=== PATIENT | female | born 1950 | race Caucasian/White ===

== ENCOUNTER → 2020-01-15 14:53 | Outpatient (BNVA) | payer MEDICARE, OTHER, SELFPAY | PROVIDERS: PCP Internal Medicine; Visit Provider Surgery | DX: D24.1 Benign neoplasm of right breast (principal); Z80.3 Family history of malignant neoplasm of breast | CPT/HCPCS: 99213 ==

== ENCOUNTER 2020-01-31 12:34 | Outpatient (REF) | payer MEDICARE, OTHER, SELFPAY ==
[2020-01-28 13:29] LABS: Blood Urea Nitrogen 16 mg/dL (9-16); Estimated Glomerular Filt Rate > 60
--- NOTE | 2020-01-31 12:33 | MR_ITS ---
EXAMINATION: MR BREAST WITHOUT AND WITH CONTRAST, BILATERAL CLINICAL INFORMATION: High-risk screening. Prior right breast MRI biopsy revealing papilloma. COMPARISON: MRI 06/22/2018. TECHNIQUE: Imaging was performed with a dedicated breast coil. Prior to the administration of contrast, bilateral axial T1 and bilateral axial T2-weighted sequences were obtained. After the uneventful administration of?7.5 mL of Gadavist, dynamic contrast-enhanced VIBRANT series through the breasts in the axial plane were performed. Subtracted images were performed and reviewed. A delayed sagittal sequence through both breasts was acquired. Additionally, CAD post-processing, including maximum intensity projections, 3-D reconstructions and kinetic analysis, were performed an independent workstation and reviewed by the interpreting radiologist is a portion of this exam. FINDINGS: The patient's fibroglandular tissue demonstrates moderate background enhancement. LEFT BREAST: There are scattered foci of enhancement mostly localized to the anterior left breast which appear little changed compared to the 2019 examination. No clear-cut suspicious nonmasslike or masslike enhancement. No abnormal skin thickening or nipple retraction. No abnormal architectural distortion. Review of the T2-weighted images demonstrates no fibrocystic changes or dilated ducts. Review of kinetic images reveals no additional findings. RIGHT BREAST: Biopsy clip present at 11 o'clock, anterior. No residual enhancing lesion. Similar to the contralateral side, there are numerous scattered foci of enhancement. With the exception of the biopsied lesion, these appear little changed compared to 2019. A dominant enhancing mass, oval in shape, located 11 o'clock, 2.8 cm from the nipple measures 0.6 cm in size and appears stable compared to previous examination. Findings images plateau or type II enhancement. Recommend close attention on follow up to ensure continued stability (image 76, series 100). No abnormal skin thickening or nipple retraction. No abnormal architectural distortion. Review of the T2-weighted images demonstrates no fibrocystic changes or dilated ducts. Review of kinetic images reveals no additional findings. There is no suspicious internal mammary chain or axillary adenopathy. A few partially imaged T2 hyperintense foci within the anterior aspect of the liver stable compared to the 2019 examination and most likely represent cysts. MR/MR breast BI wo/w con IMPRESSION: 1. No convincing MR specific evidence of malignancy. 2. Unremarkable benign right breast MRI-guided biopsy site. No residual lesion. 3. Probably benign 6 mm enhancing mass, right breast, 11 o'clock. Finding is stable compared to 2019. Recommended continued attention on follow up. ASSESSMENT: LEFT BREAST: BI-RADS 2 - Benign Findings. RIGHT BREAST: BI-RADS 3 - Probably benign finding (s). Short interval follow up suggested. RECOMMENDATIONS: Six-month follow up right breast MRI.
== END 2020-01-31 12:35 | disposition home or self-care (01) ==
LOC: HO.MRI 12:34
PROVIDERS: Surgery; PCP Internal Medicine; Visit Provider Orthopaedic Surgery
DX: D24.1 Benign neoplasm of right breast (principal); Z91.89 Other specified personal risk factors, not elsewhere classified
CPT/HCPCS: 77049; 82565; 84520; A9585

== ENCOUNTER 2020-06-20 10:03 | Outpatient (REF) | payer MEDICARE, OTHER, SELFPAY ==
--- NOTE | ~2020-06-20 | MM_ITS ---
EXAMINATION: MM SCREENING DIGITAL BREAST TOMOSYNTHESIS, BILATERAL CLINICAL INFORMATION: Screening. Asymptomatic. The lifetime risk of breast cancer based on the Tyrer-Cuzick Model is 17.5%. COMPARISON: Mammography: August 15, 2019 and studies dating back to September 06, 2012 TECHNIQUE: Digital breast tomosynthesis is performed in both the craniocaudal and mediolateral oblique views along with computer-aided detection (CAD). Synthesized 2D images are generated from the tomosynthesis. FINDINGS: There are scattered areas of fibroglandular density (ACR BI-RADS breast composition Category b). There are no significant masses, abnormal calcifications, or other abnormalities. MM/MM tomosynthesis screening BI IMPRESSION: There are no significant changes from prior study. ASSESSMENT: BI-RADS 1: Negative RECOMMENDATION: Routine annual mammography screening. This patient's information was entered into a reminder system with a target due date for their next mammogram.
== END 2020-06-20 10:04 | disposition home or self-care (01) ==
LOC: HO.MAMMO 10:03
PROVIDERS: Visit Provider Surgery
DX: Z12.31 Encounter for screening mammogram for malignant neoplasm of breast (principal)
CPT/HCPCS: 77063; 77067

== ENCOUNTER 2020-07-02 09:00 | Outpatient (RCR) | payer MEDICARE, OTHER, SELFPAY | END 2020-08-01 10:25 | disposition home or self-care (01) | LOC: HO.PTCHIC 09:00 | PROVIDERS: PCP Internal Medicine; Visit Provider Nurse Practitioner Women's Health | DX: M48.061 Spinal stenosis, lumbar region without neurogenic claudication (principal); Z98.890 Other specified postprocedural states | CPT/HCPCS: 97012; 97110; 97112; 97140; 97162; 97530 ==

== ENCOUNTER 2020-08-07 09:33 | Outpatient (REF) | payer MEDICARE, OTHER, SELFPAY ==
[2020-08-07 11:15] LABS: Blood Urea Nitrogen 17 mg/dL (9-16); Estimated Glomerular Filt Rate > 60
== END 2020-08-07 09:34 | disposition home or self-care (01) ==
LOC: HO.LAB 09:33
PROVIDERS: PCP Internal Medicine; Visit Provider Surgery
DX: R92.8 Other abnormal and inconclusive findings on diagnostic imaging of breast (principal); D24.1 Benign neoplasm of right breast; Z91.89 Other specified personal risk factors, not elsewhere classified
CPT/HCPCS: 36415; 82565; 84520; 99212

== ENCOUNTER 2020-08-11 07:54 | Outpatient (REF) | payer MEDICARE, OTHER, SELFPAY ==
--- NOTE | ~2020-08-11 | MR_ITS ---
EXAMINATION: MR BREAST WITHOUT AND WITH CONTRAST, BILATERAL CLINICAL INFORMATION: Short interval follow-up for right breast enhancing mass, 11:00 position. COMPARISON: Bilateral breast MRI 01/31/2020, 06/22/2018, bilateral mammogram 06/23/2020 TECHNIQUE: Imaging was performed with a dedicated breast coil. Prior to the administration of contrast, bilateral axial T1 and bilateral axial T2 weighted sequences were obtained. After the uneventful administration of?7.5 mL of Gadavist, dynamic contrast-enhanced VIBRANT series through the breasts in the axial plane were performed. Subtracted images were performed and reviewed. A delayed sagittal sequence through both breasts was acquired. Additionally, CAD post-processing, including maximum intensity projections, 3-D reconstructions and kinetic analysis, were performed an independent workstation and reviewed by the interpreting radiologist is a portion of this exam. FINDINGS: The patient's fibroglandular tissue demonstrates minimal background enhancement. LEFT BREAST: There are scattered enhancing foci which are slightly less pronounced and less numerous than on most recent prior MRI. There is no suspicious mass, duct dilatation or ductal type enhancement. No skin thickening or nipple retraction is seen. RIGHT BREAST: Oval enhancing nodule in the 11:00 position, anterior depth is unchanged in appearance, consistent with a benign etiology. There are multiple scattered enhancing foci which are also stable. There is no new suspicious or dominant enhancing mass. No duct dilatation or ductal type enhancement is seen. There is no skin thickening or nipple retraction. Susceptibility artifact at the site of biopsy marker clip is seen in the 11:00 position, anterior depth. There is no suspicious internal mammary chain or axillary adenopathy. Limited views of the chest and abdomen are unremarkable. MR/MR breast BI wo/w con IMPRESSION: No MR specific evidence of malignancy. ASSESSMENT: LEFT BREAST: BI-RADS 1-Negative RIGHT BREAST: BI-RADS 1-Negative RECOMMENDATIONS: Bilateral mammogram in May 2021 and repeat MRI as clinically indicated.
== END 2020-08-11 07:55 | disposition home or self-care (01) ==
LOC: HO.MRI 07:54
PROVIDERS: Visit Provider Surgery
DX: R92.8 Other abnormal and inconclusive findings on diagnostic imaging of breast (principal); D24.1 Benign neoplasm of right breast; Z91.89 Other specified personal risk factors, not elsewhere classified
CPT/HCPCS: 77049; A9585

== ENCOUNTER → 2021-04-21 13:11 | Outpatient (BNVA) | payer MEDICARE, OTHER, SELFPAY | PROVIDERS: PCP Internal Medicine; Visit Provider Surgery | DX: D24.1 Benign neoplasm of right breast (principal); R92.8 Other abnormal and inconclusive findings on diagnostic imaging of breast; Z91.89 Other specified personal risk factors, not elsewhere classified; Z80.3 Family history of malignant neoplasm of breast | CPT/HCPCS: 99212 ==

== ENCOUNTER 2021-06-22 12:17 | Outpatient (REF) | payer MEDICARE, OTHER, SELFPAY ==
--- NOTE | ~2021-06-22 | MM_ITS ---
EXAMINATION: MM SCREENING DIGITAL BREAST TOMOSYNTHESIS, BILATERAL CLINICAL INFORMATION: Screening. Asymptomatic. History right MR guided biopsy 07/27/2018 (sclerotic intraductal papilloma and adenosis. No atypia). The lifetime risk of breast cancer based on the Tyrer-Cuzick Model is 15%. COMPARISON: Mammography: 06/20/2020, 06/15/2019, 12/19/2017; MRI breasts 08/11/2020, 07/27/2018, 06/22/2018. TECHNIQUE: Digital breast tomosynthesis is performed in both the craniocaudal and mediolateral oblique views along with computer-aided detection (CAD). Synthesized 2D images are generated from the tomosynthesis. FINDINGS: There are scattered areas of fibroglandular density (ACR BI-RADS breast composition Category b). There are no significant masses, abnormal calcifications, or other abnormalities. Parenchymal pattern is similar to prior studies. There is a biopsy clip marker again noted anterior 11:00 right breast. The axilla and skin contours are unremarkable. No significant changes. MM/MM tomosynthesis screening BI IMPRESSION: No mammographic evidence of malignancy. ASSESSMENT: BI-RADS 1: Negative RECOMMENDATION: Routine annual mammography screening. This patient's information was entered into a reminder system with a target due date for their next mammogram.
== END 2021-06-22 12:18 | disposition home or self-care (01) ==
LOC: HO.MAMMO 12:17
PROVIDERS: PCP Internal Medicine; Visit Provider Surgery
DX: Z12.31 Encounter for screening mammogram for malignant neoplasm of breast (principal)
CPT/HCPCS: 77063; 77067

== ENCOUNTER 2021-08-13 14:43 | Outpatient (REF) | payer MEDICARE, OTHER, SELFPAY ==
--- NOTE | ~2021-08-13 | MR_ITS ---
EXAMINATION: MR BREAST WITHOUT AND WITH CONTRAST, BILATERAL CLINICAL INFORMATION: High-risk screening. COMPARISON: MRI 08/11/2020, 01/31/2020 TECHNIQUE: Imaging was performed with a dedicated breast coil. Prior to the administration of contrast, bilateral axial T1 and bilateral axial T2 weighted sequences were obtained. After the uneventful administration of?7.5 mL of Gadavist, dynamic contrast-enhanced VIBRANT series through the breasts in the axial plane were performed. Subtracted images were performed and reviewed. A delayed sagittal sequence through both breasts was acquired. Additionally, CAD post-processing, including maximum intensity projections, 3-D reconstructions and kinetic analysis, were performed an independent workstation and reviewed by the interpreting radiologist is a portion of this exam. FINDINGS: The patient's fibroglandular tissue demonstrates moderate background enhancement. LEFT BREAST: There is diffuse background parenchymal enhancement in combination with numerous enhancing foci. This is similar compared to previous examinations. No suspicious masslike or non-masslike enhancement. No abnormal skin thickening or nipple retraction. No abnormal architectural distortion. Review of the T2 weighted images demonstrates no fibrocystic changes or dilated ducts. Review of kinetic images reveals no additional findings. RIGHT BREAST: Similar to the contralateral side, there is diffuse background parenchymal enhancement in combination with scattered foci of enhancement. No significant change compared to previous study. Biopsy clip artifact 12:00. No suspicious masslike or non-masslike enhancement. No abnormal skin thickening or nipple retraction. No abnormal architectural distortion. Review of the T2 weighted images demonstrates no fibrocystic changes or dilated ducts. Review of kinetic images reveals no additional findings. There is no suspicious internal mammary chain or axillary adenopathy. Limited views of the chest and abdomen are unremarkable. MR/MR breast BI wo/w con IMPRESSION: No MR specific evidence of malignancy. ASSESSMENT: LEFT BREAST: BI-RADS 1-Negative RIGHT BREAST: BI-RADS 1-Negative RECOMMENDATIONS: Clinical follow-up. Continued annual mammographic surveillance. Further breast MRI as risk factors dictate.
[2021-08-13 14:27] LABS: Blood Urea Nitrogen 14 mg/dL (9-16); Estimated Glomerular Filt Rate > 60
== END 2021-08-13 14:44 | disposition home or self-care (01) ==
LOC: HO.MRI 14:43
PROVIDERS: Visit Provider Surgery
DX: R92.8 Other abnormal and inconclusive findings on diagnostic imaging of breast (principal); Z91.89 Other specified personal risk factors, not elsewhere classified
CPT/HCPCS: 36415; 77049; 82565; 84520; A9585

== ENCOUNTER → 2021-09-10 09:40 | Outpatient (BNVA) | payer MEDICARE, OTHER, SELFPAY | PROVIDERS: PCP Internal Medicine; Visit Provider Surgery | DX: D24.1 Benign neoplasm of right breast (principal); R92.8 Other abnormal and inconclusive findings on diagnostic imaging of breast; Z91.89 Other specified personal risk factors, not elsewhere classified | CPT/HCPCS: 99212 ==

== ENCOUNTER → 2022-03-09 13:34 | Outpatient (BNVA) | payer MEDICARE, OTHER, SELFPAY | PROVIDERS: PCP Internal Medicine; Visit Provider Surgery | DX: R92.8 Other abnormal and inconclusive findings on diagnostic imaging of breast (principal); I10 Essential (primary) hypertension; Z80.3 Family history of malignant neoplasm of breast; Z91.89 Other specified personal risk factors, not elsewhere classified | CPT/HCPCS: 99212 ==

== ENCOUNTER 2022-06-30 07:35 | Outpatient (REF) | payer MEDICARE, OTHER, SELFPAY ==
--- NOTE | ~2022-06-30 | MM_ITS ---
EXAMINATION: MM SCREENING DIGITAL BREAST TOMOSYNTHESIS, BILATERAL CLINICAL INFORMATION: Screening. Asymptomatic. Family history breast cancer. The lifetime risk of breast cancer based on the Tyrer-Cuzick Model is 14%. COMPARISON: Mammography: 06/22/2021, 06/20/2020, 06/15/2019, 12/19/2017; breast MR 08/13/2021. TECHNIQUE: Digital breast tomosynthesis is performed in both the craniocaudal and mediolateral oblique views along with computer-aided detection (CAD). Synthesized 2D images are generated from the tomosynthesis. FINDINGS: There are scattered areas of fibroglandular density (ACR BI-RADS breast composition Category b). There are no significant masses, abnormal calcifications, or other abnormalities. Parenchymal pattern is similar to prior studies. There is no developing density or architectural abnormality. Incidental biopsy clip marker again noted periareolar upper outer right breast. The axilla and skin contours are unremarkable. No significant changes. MM/MM tomosynthesis screening BI IMPRESSION: No mammographic evidence of malignancy. ASSESSMENT: BI-RADS 1: Negative RECOMMENDATION: -Routine annual mammography screening. -Additional annual supplemental screening with breast MRI as clinical risk factors warrant. This patient's information was entered into a reminder system with a target due date for their next mammogram.
== END 2022-06-30 07:36 | disposition home or self-care (01) ==
LOC: HO.MAMMO 07:35
PROVIDERS: PCP Internal Medicine; Visit Provider Internal Medicine
DX: Z12.31 Encounter for screening mammogram for malignant neoplasm of breast (principal)
CPT/HCPCS: 77063; 77067

== ENCOUNTER → 2022-09-07 12:49 | Outpatient (BNVA) | payer MEDICARE, OTHER, SELFPAY | PROVIDERS: PCP Internal Medicine; Visit Provider Surgery | DX: R92.8 Other abnormal and inconclusive findings on diagnostic imaging of breast (principal); Z91.89 Other specified personal risk factors, not elsewhere classified | CPT/HCPCS: 99212 ==

== ENCOUNTER 2022-10-19 08:47 | Outpatient (AMB) | payer MEDICARE, OTHER, SELFPAY ==
--- NOTE | 2022-10-19 08:52 | MHC.OFFVIS ---
Intake Vital Signs 10/19/22 08:56 Height 5 ft 1 in Weight 157 lb BMI 29.7 BP 152/87 H Blood Pressure Location Lt brachial Position Sitting Pulse 64 Intake Visit Reasons: Exc Shoulder Cyst Intake Note: Patient is seen in office for excision of shoulder cyst. Patient c/o: denies any concerns or changes since last visit, here to remove cyst of the left shoulder/back. Certified Registered Nurse Practitioner Required: No Accompanied by: Self / Same As Patient Allergies diphenhydramine [Benadryl Allergy] Allergy (Unknown, Verified 09/07/22 12:57) heart palpitations xanthan gum Allergy (Unknown, Verified 09/07/22 12:57) anaphylaxis Chlortrimeton Allergy (Unknown, Uncoded 09/07/22 12:57) Heart race IV Dye Allergy (Unknown, Uncoded 09/07/22 12:57) Swelling seasonal Allergy (Unknown, Uncoded 09/07/22 12:57) Unknown Medication List - Last Reconciled 10/19/22 by Jose Hunt MD allopurinol 100 mg PO DAILY cholecalciferol (vitamin D3) 50 mcg PO DAILY fexofenadine (Carissa Allergy) 60 mg PO Q12H fluticasone propionate 50 mcg/actuation 2 sprays intranasal DAILY hydrochlorothiazide 25 mg PO DAILY HPI HPI Comments History of Present Illness Details 72-year-old female patient read returning today for excision of a sebaceous cysts of the left posterior shoulder. [facility] Medical History Borderline hypertension Papilloma of right breast Surgical History History of appendectomy (~06/1968) History of blepharoplasty (~08/2010) History of History of right breast biopsy (07/27/18) History of spinal fusion (08/2020) History of tonsillectomy Family History Father No problems noted. Mother Breast cancer Paternal Grandmother Cervical cancer Maternal Aunt Breast cancer Thyroid cancer Maternal Aunt History of pancreatic cancer Sister Multiple myeloma Paternal Uncle Prostate cancer Paternal Aunt Breast cancer Maternal Uncle ALS (amyotrophic lateral sclerosis) Maternal Uncle Oral cancer Family/Other History of pancreatic cancer Maternal Uncle Brain cancer Social History Patient Tobacco Use Status: Never used Tobacco Physical Exam Back/Spine/Pelvis Back/spine/pelvis image: 1. 2 cm sebaceous cyst posterior left shoulder Office Procedures Excision Details: Preoperative diagnosis: Sebaceous cyst left posterior shoulder Postoperative diagnosis: Sebaceous cyst left Posterior shoulder Procedure: Excision of sebaceous cyst left posterior shoulder Surgeon: Jose Hunt MD Access Developer: None Anesthesia: Local Indications for procedure: 72-year-old female presenting with an enlarging cyst of the left shoulder measuring approximately 2 cm in diameter. Operative findings: 2 cm sebaceous cyst left posterior shoulder Specimen: Sebaceous cyst left posterior shoulder Estimated blood loss: Less than 2 mL Complications: None Procedure details: Patient was placed in a prone position. The site of surgery was confirmed by the patient in the left posterior shoulder. After assuring informed consent the skin was prepped with Betadine and draped in a sterile fashion. Local anesthesia was then infiltrated circumferentially around the lesion. Elliptical incision was then created around the lesion and carried out through subcutaneous tissue and around the cyst wall. Sharp dissection was used to excise the cyst entirely. This was sent to pathology for further examination. After assuring adequate hemostasis the skin was then closed using interrupted 3-0 nylon sutures. Sterile dressings were then applied. The patient tolerated the procedure well. She was discharged to home in stable condition. 06224-jbfin/arms/legs 1.1-2cm Procedure code (CPT) selection complete Assessment & Plan Assessment & Plan (1) Sebaceous cyst: Code(s): L72.3 - Sebaceous cyst Plan 72-year-old female status post excision of a sebaceous cyst of the left posterior shoulder. She should return 1 week for suture removal. Orders: Orders Surgical Today L72.3 - Sebaceous cyst Coding Level of Care Code Procedure Only Diagnoses Sebaceous cyst L72.3 CPT Codes Trunk/Arms/Legs - CPT: 86143-dqvoi/arms/legs 1.1-2cm ([id number])
[2022-10-19 08:56] VITALS: BP 152/87; PULSE 64; BMI 29.7
== END 2022-10-19 09:27 | disposition home or self-care (01) ==
PROVIDERS: PCP Internal Medicine; Visit Provider Surgery
DX: L72.3 Sebaceous cyst (principal)
CPT/HCPCS: 11402

== ENCOUNTER 2022-10-19 08:47 | Outpatient (REF) | payer MEDICARE, OTHER, SELFPAY | END 2022-10-19 08:48 | disposition home or self-care (01) | LOC: HO.LNP 08:47 | PROVIDERS: PCP Internal Medicine; Visit Provider Surgery | DX: L72.3 Sebaceous cyst (principal) | CPT/HCPCS: 11402; 88304 ==

== ENCOUNTER 2022-10-28 08:45 | Outpatient (AMB) | payer MEDICARE, OTHER, SELFPAY ==
--- NOTE | 2022-10-28 08:49 | A.OFFVIS_ITS ---
Intake Vital Signs 10/28/22 08:56 Height 5 ft 1 in Weight 156 lb 8.451 oz BMI 29.6 BP 120/80 Blood Pressure Location Lt brachial Position Sitting Intake Visit Reasons: Follow up exc shoulder cyst Intake Note: Patient is seen in office for post op assessment post excision of shoulder cyst. Icer Machine Operator Required: No Accompanied by: Self / Same As Patient Allergies diphenhydramine [Benadryl Allergy] Allergy (Unknown, Verified 10/28/22 08:58) heart palpitations xanthan gum Allergy (Unknown, Verified 10/28/22 08:58) anaphylaxis Chlortrimeton Allergy (Unknown, Uncoded 10/28/22 08:58) Heart race IV Dye Allergy (Unknown, Uncoded 10/28/22 08:58) Swelling seasonal Allergy (Unknown, Uncoded 10/28/22 08:58) Unknown Medication List - Last Reconciled 10/28/22 by Jose Hunt MD allopurinol 100 mg PO DAILY cholecalciferol (vitamin D3) 50 mcg PO DAILY fexofenadine (Carissa Allergy) 60 mg PO Q12H fluticasone propionate 50 mcg/actuation 2 sprays intranasal DAILY hydrochlorothiazide 25 mg PO DAILY HPI HPI Comments History of Present Illness Details Patient returns 1 week following excision of a sebaceous cyst of the left posterior shoulder. She tolerated the procedure well and denies any ongoing symptoms. Pathology confirmed an epidermal inclusion cyst. She returns today for suture removal. [facility] Medical History Borderline hypertension Papilloma of right breast Surgical History History of appendectomy (~06/1968) History of blepharoplasty (~08/2010) History of History of right breast biopsy (07/27/18) History of spinal fusion (08/2020) History of tonsillectomy Family History Father No problems noted. Mother Breast cancer Paternal Grandmother Cervical cancer Maternal Aunt Breast cancer Thyroid cancer Maternal Aunt History of pancreatic cancer Sister Multiple myeloma Paternal Uncle Prostate cancer Paternal Aunt Breast cancer Maternal Uncle ALS (amyotrophic lateral sclerosis) Maternal Uncle Oral cancer Family/Other History of pancreatic cancer Maternal Uncle Brain cancer Social History Patient Tobacco Use Status: Never used Tobacco Physical Exam Vital Signs: Last Vital Signs BP 120/80 10/28/22 08:56 BMI result Body Mass Index 29.6 Skin Other: Excision site in the left posterior shoulder is clean, dry, and intact. Sutures removed and the wounds found to be well healed. Full body images: 1. Incision left posterior shoulder Assessment & Plan Assessment & Plan (1) Sebaceous cyst: Code(s): L72.3 - Sebaceous cyst Plan Patient returns 1 week following excision of a sebaceous cyst of the left posterior shoulder. Wounds are clean, dry, and intact. Sutures removed the wounds found to be well healed. She is due for her breast MRI on 11/12/2022. She will return for routine breast examination in February 2023. Coding Level of Care Code Global (34476) Diagnoses Sebaceous cyst L72.3
[2022-10-28 08:56] VITALS: BP 120/80; BMI 29.6
== END 2022-10-28 09:23 | disposition home or self-care (01) ==
PROVIDERS: PCP Internal Medicine; Visit Provider Surgery
DX: L72.3 Sebaceous cyst (principal)
CPT/HCPCS: 99024

== ENCOUNTER → 2022-10-28 08:45 | Outpatient (BNVA) | payer MEDICARE, OTHER, SELFPAY | PROVIDERS: PCP Internal Medicine; Visit Provider Surgery ==

== ENCOUNTER 2022-11-12 08:03 | Outpatient (REF) | payer MEDICARE, OTHER, SELFPAY ==
--- NOTE | ~2022-11-12 | MR_ITS ---
EXAMINATION: MR BREAST WITHOUT AND WITH CONTRAST, BILATERAL CLINICAL INFORMATION: High-risk screening. Family history of breast cancer including multiple cousins and aunts. Right-sided papilloma identified at prior biopsy. COMPARISON: 08/13/2021 and selected images from priors. TECHNIQUE: Imaging was performed with a dedicated breast coil. Prior to the administration of contrast, bilateral axial T1 and bilateral axial T2 weighted sequences were obtained. After the uneventful administration of?7 mL of Gadavist, dynamic contrast-enhanced VIBRANT series through the breasts in the axial plane were performed. Subtracted images were performed and reviewed. A delayed sagittal sequence through both breasts was acquired. Additionally, CAD post-processing, including maximum intensity projections, 3-D reconstructions and kinetic analysis, were performed an independent workstation and reviewed by the interpreting radiologist is a portion of this exam. FINDINGS: The breasts are comprised of scattered fiber glandular elements. The tissue undergoes mild background enhancement. LEFT BREAST: No suspicious mass, dominant nonmass enhancement or architectural distortion. No skin thickening or nipple retraction. Multiple small similar scattered foci of nonmass enhancement throughout the left breast without significant change compared with prior. No additional findings on T2-weighted sequence, kinetic analysis or volume rendering. RIGHT BREAST: No suspicious mass, dominant nonmass enhancement or architectural distortion. No skin thickening or nipple retraction. Small scattered foci of nonmass enhancement predominating in the anterior right breast are similar in appearance to those on the left and unchanged compared with priors. Clip artifact at 12:00 without associated enhancement. No additional findings on T2-weighted sequences, kinetic analysis or volume renderings. There is no suspicious internal mammary chain or axillary adenopathy. Limited views of the chest and abdomen are unremarkable. MR/MR breast BI wo/w con IMPRESSION: No MR specific evidence of malignancy. ASSESSMENT: LEFT BREAST: BI-RADS 2, benign findings. RIGHT BREAST: BI-RADS 2, benign findings. RECOMMENDATIONS: Yearly bilateral breast MR per published guidelines in high-risk patients.
[2022-11-12] MEDS: gadobutroL 7.5 ML VIAL IVPUSH (09:08)
== END 2022-11-12 08:04 | disposition home or self-care (01) ==
LOC: HO.MRI 08:03
PROVIDERS: PCP Internal Medicine; Visit Provider Surgery
DX: Z12.39 Encounter for other screening for malignant neoplasm of breast (principal)
CPT/HCPCS: 77049; A9585

== ENCOUNTER 2023-07-06 08:00 | Outpatient (REF) | payer MEDICARE, OTHER, SELFPAY ==
--- NOTE | ~2023-07-06 | MM_ITS ---
EXAMINATION: MM SCREENING DIGITAL BREAST TOMOSYNTHESIS, BILATERAL CLINICAL INFORMATION: Screening. Asymptomatic. COMPARISON: Mammography: This study is compared with prior exams dating back to 2018. TECHNIQUE: Digital breast tomosynthesis is performed in both the craniocaudal and mediolateral oblique views along with computer-aided detection (CAD). Synthesized 2D images are generated from the tomosynthesis. FINDINGS: There are scattered areas of fibroglandular density (ACR BI-RADS breast composition Category b). There are no significant masses, abnormal calcifications, or other abnormalities. There is a tissue marker in the upper outer quadrant of the right breast at anterior depth. This indicates site of prior benign percutaneous biopsy. MM/MM tomosynthesis screening BI IMPRESSION: No mammographic evidence of malignancy. ASSESSMENT: BI-RADS BI-RADS 2 - Benign Findings RECOMMENDATION: Routine annual mammography screening. 1 year F/U This examination should not preclude the clinical evaluation of a suspicious palpable abnormality. This patient's information was entered into a reminder system with a target due date for their next mammogram.
== END 2023-07-06 08:01 | disposition home or self-care (01) ==
LOC: HO.MAMMO 08:00
PROVIDERS: PCP Internal Medicine; Visit Provider Surgery
DX: Z12.31 Encounter for screening mammogram for malignant neoplasm of breast (principal)
CPT/HCPCS: 77063; 77067

== ENCOUNTER → 2023-07-06 08:00 | Outpatient (BNV) | payer MEDICARE, OTHER, SELFPAY | PROVIDERS: PCP Internal Medicine; Visit Provider Radiology Diagnostic Radiology | DX: Z12.31 Encounter for screening mammogram for malignant neoplasm of breast (principal) | CPT/HCPCS: 77063; 77067 ==

== ENCOUNTER 2023-08-16 13:05 | Outpatient (AMB) | payer MEDICARE, OTHER, SELFPAY ==
--- NOTE | 2023-08-16 13:19 | MHC.OFFVIS ---
Vital Signs 08/16/23 13:28 Height 5 ft 1 in Weight 165 lb BMI 31.2 BP 134/82 Blood Pressure Location Rt brachial Position Sitting Pulse 70 Intake Visit Reasons: Breast Exam Intake Note: Patient is seen in office for follow up visit, following breast exam. Pt c/o: reports no breast complaints. mm:07/06/23 MRI:11/12/22 Soaping Department Supervisor Required: No Accompanied by: Self / Same As Patient Allergies diphenhydramine [Benadryl Allergy] Allergy (Unknown, Verified 08/16/23 13:39) heart palpitations xanthan gum Allergy (Unknown, Verified 08/16/23 13:39) anaphylaxis Chlortrimeton Allergy (Unknown, Uncoded 08/16/23 13:39) Heart race IV Dye Allergy (Unknown, Uncoded 08/16/23 13:39) Swelling seasonal Allergy (Unknown, Uncoded 08/16/23 13:39) Unknown Medication List - Last Reconciled 08/16/23 by Jose Hunt MD allopurinol 100 mg PO DAILY cholecalciferol (vitamin D3) 1,000 units PO DAILY epinephrine 0.3 mL IM ONCE PRN fexofenadine (Carissa Allergy) 180 mg PO ONCE fluticasone propionate 50 mcg/actuation 2 sprays intranasal DAILY gabapentin 300 mg PO TID hydrochlorothiazide 25 mg PO DAILY ibuprofen-acetaminophen 125-250 mg 1 tab PO TID ipratropium bromide intranasal prednisone mg PO HPI Comments Details: Sada Gonzalez is a 72-year-old female patient of Dr. Esdras Taylor returning for a high risk breast examination. Her family history is significant for her mother diagnosed with breast cancer at the age of 70 ( she at the age of 94 ), maternal aunt with breast cancer diagnosed at age 55, maternal first cousin diagnosed with breast cancer at the age of 55, maternal great aunt diagnosed with breast cancer at an unknown age, and a paternal great aunt also diagnosed with breast cancer at the age of 65. Her sister from multiple myeloma in 2018. Mrs. Gonzalez has been followed for high risk of breast cancer due to her family history with yearly mammograms alternated every 6 months with MRIs of the breast. She underwent MRI of the breast in June 2018 which revealed a high suspicion finding in the right breast (BI-RADS 4). She subsequently underwent an MR guided biopsy on 07/27/2018 which revealed a benign papilloma. Subsequent breast MRI on 01/31/2020 revealed a low suspicion area in the right breast and a six-month follow-up right breast MRI of the was recommended. This was obtained on 08/11/2020 and revealed no suspicious findings in either breast (BI-RADS 1 bilaterally). Her last mammogram dated 07/06/2023 revealed no mammographic evidence of malignancy (BI-RADS 2). Her last breast MRI 11/12/2022 revealed no MR specific evidence of malignancy (BI-RADS 2 bilateral). She denies any new breast symptoms in either breast. [facility] Medical History Papilloma of right breast Borderline hypertension Surgical History History of spinal fusion (08/2020) History of right breast biopsy (07/27/18) History of History of tonsillectomy History of appendectomy (~06/1968) History of blepharoplasty (~08/2010) Family History Father No problems noted. Mother Breast cancer Paternal Grandmother Cervical cancer Maternal Aunt Breast cancer Thyroid cancer Maternal Aunt History of pancreatic cancer Sister Multiple myeloma Paternal Uncle Prostate cancer Paternal Aunt Breast cancer Maternal Uncle ALS (amyotrophic lateral sclerosis) Maternal Uncle Oral cancer Family/Other History of pancreatic cancer Maternal Uncle Brain cancer Social History Patient Tobacco Use Status: Never used Tobacco Review of Systems Const Denies chills, Denies fever(s), Denies headache(s) and Denies poor appetite ENT Denies dizziness and Denies headache(s) Card Denies chest pain, Denies rapid heart rate, Denies palpitations and Denies slow heart rate Resp Denies chest congestion, Denies cough, Denies pain on inspiration and Denies wheezing GI Denies abdominal pain, Denies bloating, Denies change in stool character, Denies constipation, Denies diarrhea, Denies nausea and Denies vomiting Denies nipple discharge Musc Denies back pain, Denies arthralgias, Denies joint swelling and Denies numbness Skin/Breast Denies breast swelling, Denies breast skin changes, Denies breast pain, Denies breast mass, Denies change in pigmentation, Denies nipple discharge, Denies erythema and Denies rash Neuro Denies dizziness, Denies headache(s) and Denies numbness Psych Denies anxiety and Denies depression Endo Denies palpitations Kelechi/Lymph Denies easy bleeding, Denies easy bruising and Denies lymphadenopathy Aller/Immun Denies wheezing Physical Exam Vital Signs: Last Vital Signs Pulse 70 08/16/23 13:28 BP 134/82 08/16/23 13:28 BMI result Body Mass Index 31.2 Const General: cooperative, healthy appearing, comfortable, no acute distress, well developed, alert, awake and Physically active Chest Other: Left breast: No skin change, no nipple retraction, no nipple discharge, no palpable mass, no enlarged lymph nodes. Right breast: No skin change, no nipple retraction, no nipple discharge, no palpable mass, no enlarged lymph nodes Resp Effort & Inspection: normal respiratory effort Skin General skin exam: no rashes or lesions noted Extrem General: Yes no clubbing, cyanosis or edema Assessment & Plan Assessment & Plan (1) At high risk for breast cancer: Code(s): Z91.89 - Other specified personal risk factors, not elsewhere classified Category: Medical (2) Abnormal magnetic resonance imaging of right breast: Code(s): R92.8 - Other abnormal and inconclusive findings on diagnostic imaging of breast Category: Medical Plan 72-year-old female patient determined to be at high risk for breast cancer due to family history. Her most recent mammogram of 07/06/2023 revealed no suspicious findings in either side (BI-RADS 2. In addition her breast MRI of 11/12/2022 revealed no MR specific evidence of malignancy (BI-RADS 2 bilaterally). I recommended yearly breast MRI in October 2023 as well as yearly mammogram in June 2024. She should return approximately 6 months for routine breast examination, sooner p.r.n.. Orders: Orders MR breast BI wo/w con 11/14/23 Z91.89 - Other specified personal risk factors, not elsewhere classified Coding Level of Care Code Est Pt Level 3 (85946) Diagnoses At high risk for breast cancer Z91.89 Abnormal magnetic resonance imaging of right breast R92.8
[2023-08-16 13:28] VITALS: BP 134/82; PULSE 70; BMI 31.2
== END 2023-08-16 14:01 | disposition home or self-care (01) ==
PROVIDERS: PCP Internal Medicine; Visit Provider Surgery
DX: R92.8 Other abnormal and inconclusive findings on diagnostic imaging of breast (principal); Z80.3 Family history of malignant neoplasm of breast
CPT/HCPCS: 99213

== ENCOUNTER → 2023-08-16 13:05 | Outpatient (BNVA) | payer MEDICARE, OTHER, SELFPAY | PROVIDERS: PCP Internal Medicine; Visit Provider Surgery | DX: Z91.89 Other specified personal risk factors, not elsewhere classified (principal); R92.8 Other abnormal and inconclusive findings on diagnostic imaging of breast | CPT/HCPCS: 99212 ==

== ENCOUNTER → 2024-01-30 08:53 | Outpatient (BNV) | payer MEDICARE, OTHER, SELFPAY | PROVIDERS: PCP Internal Medicine; Visit Provider Internal Medicine | DX: Z86.018 Personal history of other benign neoplasm (principal); Z80.3 Family history of malignant neoplasm of breast; Z91.89 Other specified personal risk factors, not elsewhere classified | CPT/HCPCS: 77049 ==

== ENCOUNTER 2024-01-30 09:03 | Outpatient (REF) | payer MEDICARE, OTHER, SELFPAY ==
--- NOTE | ~2024-01-30 | MR_ITS ---
EXAMINATION: MR BREAST WITHOUT AND WITH CONTRAST, BILATERAL CLINICAL INFORMATION: High risk screening. Family history of breast cancer including multiple cousins and aunts. Previous right papilloma. COMPARISON: Breast MRI October 2022, mammography June 2023. TECHNIQUE: MR imaging of the breast was performed using T1, T2 and fat saturated techniques. Dynamic multiphase imaging was also performed after administration of intravenous gadolinium contrast agent. FINDINGS: Study is limited due to lack of CAD Denice CAD kinetic analysis and mid imaging. Motion artifact limits imaging evaluation. There is scattered fibroglandular breast tissue with moderate background enhancement with bilateral scattered enhancing foci. LEFT BREAST: No suspicious enhancing mass or area of nonmass enhancement. No axillary or internal mammary adenopathy. RIGHT BREAST: No suspicious enhancing mass or area of nonmass enhancement. No axillary or internal mammary adenopathy. Limited views of the chest and abdomen are unremarkable. MR/MR breast BI wo/w con IMPRESSION: No MR specific evidence of malignancy. ASSESSMENT: LEFT BREAST: BI-RADS 1-Negative RIGHT BREAST: BI-RADS 1-Negative RECOMMENDATIONS: Yearly MRI screening surveillance. Electronically signed by: Radha Gruber DO 02/08/2024 04:34 PM EST
[2024-01-30] MEDS: gadobutroL 7.5 ML VIAL IVPUSH (10:30)
== END 2024-01-30 09:04 | disposition home or self-care (01) ==
LOC: HO.MRI 09:03
PROVIDERS: PCP Internal Medicine; Visit Provider Surgery
DX: Z12.39 Encounter for other screening for malignant neoplasm of breast (principal); Z91.89 Other specified personal risk factors, not elsewhere classified
CPT/HCPCS: 77049; A9585

== ENCOUNTER 2024-02-17 08:48 | Outpatient (AMB) | payer MEDICARE, OTHER, SELFPAY ==
--- NOTE | 2024-02-17 08:55 | A.OFFVIS_ITS ---
Vital Signs 02/17/24 09:01 02/17/24 09:04 Height 5 ft 1 in 5 ft 1 in Weight 158 lb 8 oz 158 lb 8 oz BMI 29.9 29.9 BP 135/85 135/85 Blood Pressure Location Lt brachial Lt brachial Position Sitting Sitting Pulse 88 88 Intake Visit Reasons: 6 Month Breast Exam Intake Note: Patient is seen in office for follow up visit, following breast exam. Pt c/o: denies any concerns regarding the breast mm:07/06/23 MRI:01/30/24 Casing Wringer Operator Required: No Senior Mainframe Programmer Analyst: Senior Mainframe Programmer Analyst Present Accompanied by: Self / Same As Patient Allergies diphenhydramine [Benadryl Allergy] Allergy (Unknown, Verified 02/17/24 09:02) heart palpitations xanthan gum Allergy (Unknown, Verified 02/17/24 09:02) anaphylaxis Chlortrimeton Allergy (Unknown, Uncoded 02/17/24 09:02) Heart race IV Dye Allergy (Unknown, Uncoded 02/17/24 09:02) Swelling seasonal Allergy (Unknown, Uncoded 02/17/24 09:02) Unknown Medication List - Last Reconciled 02/17/24 by Jose Hunt MD allopurinol 100 mg PO DAILY cholecalciferol (vitamin D3) 1,000 units PO DAILY epinephrine 0.3 mL IM ONCE PRN fexofenadine (Carissa Allergy) 180 mg PO ONCE fluticasone propionate 50 mcg/actuation 2 sprays intranasal DAILY hydrochlorothiazide 25 mg PO DAILY ipratropium bromide intranasal prednisone mg PO HPI Comments Details: Sada Gonzalez is a 73-year-old female patient of Dr. Esdras Taylor returning for a high risk breast examination. Her family history is significant for her mother diagnosed with breast cancer at the age of 70 ( she at the age of 94 ), maternal aunt with breast cancer diagnosed at age 55, maternal first cousin diagnosed with breast cancer at the age of 55, maternal great aunt diagnosed with breast cancer at an unknown age, and a paternal great aunt also diagnosed with breast cancer at the age of 65. Her sister from multiple myeloma in 2018. Mrs. Gonzalez has been followed for high risk of breast cancer due to her family history with yearly mammograms alternated every 6 months with MRIs of the breast. She underwent MRI of the breast in June 2018 which revealed a high suspicion finding in the right breast (BI-RADS 4). She subsequently underwent an MR guided biopsy on 07/27/2018 which revealed a benign papilloma. Subsequent breast MRI on 01/31/2020 revealed a low suspicion area in the right breast and a six-month follow-up right breast MRI of the was recommended. This was obtained on 08/11/2020 and revealed no suspicious findings in either breast (BI-RADS 1 bilaterally). Her last mammogram dated 07/06/2023 revealed no mammographic evidence of malignancy (BI-RADS 2). Her last breast MRI 01/30/2024 revealed no MR specific evidence of malignancy (BI-RADS 1 bilateral). She denies any new breast symptoms in either breast. She is currently undergoing acupuncture for her leg pain and seems to be working well. [facility] Medical History Papilloma of right breast Borderline hypertension Surgical History History of spinal fusion (08/2020) History of right breast biopsy (07/27/18) History of History of tonsillectomy History of appendectomy (~06/1968) History of blepharoplasty (~08/2010) Family History Father No problems noted. Mother Breast cancer Paternal Grandmother Cervical cancer Maternal Aunt Breast cancer Thyroid cancer Maternal Aunt History of pancreatic cancer Sister Multiple myeloma Paternal Uncle Prostate cancer Paternal Aunt Breast cancer Maternal Uncle ALS (amyotrophic lateral sclerosis) Maternal Uncle Oral cancer Family/Other History of pancreatic cancer Maternal Uncle Brain cancer Social History Patient Tobacco Use Status: Never used Tobacco Review of Systems Const All systems reviewed & are unremarkable except as noted in HPI and below Physical Exam Vital Signs: Last Vital Signs Pulse 88 02/17/24 09:04 BP 135/85 02/17/24 09:04 BMI result Body Mass Index 29.9 Const General: cooperative, healthy appearing, comfortable, no acute distress, well developed, alert, awake and Physically active Chest Other: Left breast: No skin change, no nipple retraction, no nipple discharge, no palpable mass, no enlarged lymph nodes. Right breast: No skin change, no nipple retraction, no nipple discharge, no palpable mass, no enlarged lymph nodes Resp Effort & Inspection: normal respiratory effort Skin General skin exam: no rashes or lesions noted Extrem General: Yes no clubbing, cyanosis or edema Assessment & Plan Assessment & Plan (1) At high risk for breast cancer: Code(s): Z91.89 - Other specified personal risk factors, not elsewhere classified Category: Medical (2) Abnormal magnetic resonance imaging of right breast: Code(s): R92.8 - Other abnormal and inconclusive findings on diagnostic imaging of breast Category: Medical Plan 73-year-old female patient determined to be at high risk for breast cancer due to family history. Her most recent mammogram of 07/06/2023 revealed no suspicious findings in either side (BI-RADS 2). In addition her breast MRI of 01/30/2024 revealed no MR specific evidence of malignancy (BI-RADS 1 bilaterally). I recommended yearly breast MRI in 02/14/2025 as well as yearly mammogram in June 2024. She should return approximately 6 months for routine breast examination, sooner p.r.n.. Coding Level of Care Code Est Pt Level 3 (01524) Diagnoses At high risk for breast cancer Z91.89 Abnormal magnetic resonance imaging of right breast R92.8
[2024-02-17 09:01] VITALS: BP 135/85; PULSE 88; BMI 29.9
[2024-02-17 09:04] VITALS: BP 135/85; PULSE 88; BMI 29.9
== END 2024-02-17 09:37 | disposition home or self-care (01) ==
PROVIDERS: PCP Internal Medicine; Visit Provider Surgery
DX: Z91.89 Other specified personal risk factors, not elsewhere classified (principal); R92.8 Other abnormal and inconclusive findings on diagnostic imaging of breast
CPT/HCPCS: 99213

== ENCOUNTER → 2024-02-17 08:48 | Outpatient (BNVA) | payer MEDICARE, OTHER, SELFPAY | PROVIDERS: PCP Internal Medicine; Visit Provider Surgery | DX: Z91.89 Other specified personal risk factors, not elsewhere classified (principal); R92.8 Other abnormal and inconclusive findings on diagnostic imaging of breast | CPT/HCPCS: 99212 ==

== ENCOUNTER 2024-07-11 07:49 | Outpatient (REF) | payer MEDICARE, OTHER, SELFPAY | END 2024-07-11 07:50 | disposition home or self-care (01) | LOC: HO.MAMMO 07:49 | PROVIDERS: Absent Provider Surgery; PCP Internal Medicine; Visit Provider Internal Medicine | DX: Z12.31 Encounter for screening mammogram for malignant neoplasm of breast (principal) | CPT/HCPCS: 77063; 77067 ==

== ENCOUNTER → 2024-07-11 08:00 | Outpatient (BNV) | payer MEDICARE, OTHER, SELFPAY | PROVIDERS: Absent Provider Surgery; PCP Internal Medicine; Visit Provider Internal Medicine | DX: Z12.31 Encounter for screening mammogram for malignant neoplasm of breast (principal) | CPT/HCPCS: 77063; 77067 ==

== ENCOUNTER 2024-07-31 08:14 | Outpatient (AMB) | payer MEDICARE, OTHER, SELFPAY ==
--- NOTE | 2024-07-31 08:17 | A.OFFVIS_ITS ---
Vital Signs 07/31/24 08:25 Height 5 ft 1 in Weight 163 lb BMI 30.8 BP 174/89 H Blood Pressure Location Rt brachial Position Sitting Pulse 79 Intake Visit Reasons: breast exam and MM results Intake Note: Patient here for 6m breast exam. Recently diagnosed w/ sinus infection. C/o sinus pressure, headache. Placed on amoxicillin but not improving. Patient c/o: no concerns. Denies breast rash, nipple discharge, tenderness. Mammo: 07-11-2024. Detective Chief Required: No Accompanied by: Self / Same As Patient Allergies diphenhydramine [Benadryl Allergy] Allergy (Unknown, Verified 07/31/24 08:25) heart palpitations xanthan gum Allergy (Unknown, Verified 07/31/24 08:25) anaphylaxis Chlortrimeton Allergy (Unknown, Uncoded 07/31/24 08:25) Heart race IV Dye Allergy (Unknown, Uncoded 07/31/24 08:25) Swelling seasonal Allergy (Unknown, Uncoded 07/31/24 08:25) Unknown Medication List - Last Reconciled 07/31/24 by Jose Hunt MD allopurinol 100 mg PO DAILY cholecalciferol (vitamin D3) 1,000 units PO DAILY epinephrine 0.3 mL IM ONCE PRN fexofenadine (Carissa Allergy) 180 mg PO ONCE fluticasone propionate 50 mcg/actuation 2 sprays intranasal DAILY hydrochlorothiazide 25 mg PO DAILY ipratropium bromide intranasal prednisone mg PO HPI Comments Details: Sada Gonzalez is a 73-year-old female patient of Dr. sEdras Taylor returning for a high risk breast examination. Her family history is significant for her mother diagnosed with breast cancer at the age of 70 ( she at the age of 94 ), maternal aunt with breast cancer diagnosed at age 55, maternal first cousin diagnosed with breast cancer at the age of 55, maternal great aunt diagnosed with breast cancer at an unknown age, and a paternal great aunt also diagnosed with breast cancer at the age of 65. Her sister from multiple myeloma in 2018. Mrs. Gonzalez has been followed for high risk of breast cancer due to her family history with yearly mammograms alternated every 6 months with MRIs of the breast. She underwent MRI of the breast in June 2018 which revealed a high suspicion finding in the right breast (BI-RADS 4). She subsequently underwent an MR guided biopsy on 07/27/2018 which revealed a benign papilloma. Subsequent breast MRI on 01/31/2020 revealed a low suspicion area in the right breast and a six-month follow-up right breast MRI of the was recommended. This was obtained on 08/11/2020 and revealed no suspicious findings in either breast (BI-RADS 1 bilaterally). Her most recent mammogram performed on 07/11/2024 revealed no mammographic evidence of malignancy (BI-RADS 2). MRI performed on 01/30/2024 revealed no MR specific evidence of malignancy (BI-RADS 1 bilaterally). She reports having a viral infection for the past 3 weeks with sinus pain and postnasal drip. She is currently on oral antibiotics without much improvement. [facility] Medical History Papilloma of right breast Borderline hypertension Surgical History History of spinal fusion (08/2020) History of right breast biopsy (07/27/18) History of History of tonsillectomy History of appendectomy (~06/1968) History of blepharoplasty (~08/2010) Family History Father No problems noted. Mother Breast cancer Paternal Grandmother Cervical cancer Maternal Aunt Breast cancer Thyroid cancer Maternal Aunt History of pancreatic cancer Sister Multiple myeloma Paternal Uncle Prostate cancer Paternal Aunt Breast cancer Maternal Uncle ALS (amyotrophic lateral sclerosis) Maternal Uncle Oral cancer Family/Other History of pancreatic cancer Maternal Uncle Brain cancer Social History Patient Tobacco Use Status: Never used Tobacco Review of Systems Const All systems reviewed & are unremarkable except as noted in HPI and below Physical Exam Const General: cooperative, healthy appearing, comfortable, no acute distress, well developed, alert, awake and Physically active Chest Other: Left breast: No skin change, no nipple retraction, no nipple discharge, no palpable mass, no enlarged lymph nodes. Right breast: No skin change, no nipple retraction, no nipple discharge, no palpable mass, no enlarged lymph nodes Resp Effort & Inspection: normal respiratory effort Skin General skin exam: no rashes or lesions noted Extrem General: Yes no clubbing, cyanosis or edema Assessment & Plan Assessment & Plan (1) At high risk for breast cancer: Code(s): Z91.89 - Other specified personal risk factors, not elsewhere classified Category: Medical (2) Abnormal magnetic resonance imaging of right breast: Code(s): R92.8 - Other abnormal and inconclusive findings on diagnostic imaging of breast Category: Medical Plan 73-year-old female patient determined to be at high risk for breast cancer due to family history. Her most recent mammogram performed on 07/11/2024 revealed no mammographic evidence of malignancy (BI-RADS 2). MRI performed on 01/30/2024 revealed no MR specific evidence of malignancy (BI-RADS 1 bilaterally). I recommended yearly breast MRI in 02/14/2025 as well as yearly mammogram on 07/17/2025. She should return approximately 6 months for routine breast examination, sooner p.r.n.. Coding Level of Care Code Est Pt Level 3 (53989) Complex EM visit Add On G2211 Diagnoses At high risk for breast cancer Z91.89 Abnormal magnetic resonance imaging of right breast R92.8
[2024-07-31 08:25] VITALS: BP 174/89; PULSE 79; BMI 30.8
== END 2024-07-31 08:47 | disposition home or self-care (01) ==
LOC: HO.HGS 08:14
PROVIDERS: PCP Internal Medicine; Visit Provider Surgery
DX: Z91.89 Other specified personal risk factors, not elsewhere classified (principal); R92.8 Other abnormal and inconclusive findings on diagnostic imaging of breast
CPT/HCPCS: 99213; G2211

== ENCOUNTER → 2024-07-31 08:14 | Outpatient (BNVA) | payer MEDICARE, OTHER, SELFPAY | PROVIDERS: PCP Internal Medicine; Visit Provider Surgery | DX: R92.8 Other abnormal and inconclusive findings on diagnostic imaging of breast (principal); Z91.89 Other specified personal risk factors, not elsewhere classified | CPT/HCPCS: 99212 ==

== ENCOUNTER 2025-02-25 09:23 | Outpatient (AMB) | payer MEDICARE, OTHER, SELFPAY ==
--- NOTE | 2025-02-25 09:24 | A.OFFVIS_ITS ---
Vital Signs 02/25/25 09:33 Height 5 ft 1 in Weight 159 lb BMI 30.0 BP 137/82 Blood Pressure Location Lt brachial Position Sitting Pulse 84 Intake Visit Reasons: 6 mth breast exam/MM results Intake Note: Patient is seen in office for 6 month follow up visit, breast exam. Pt c/o: denies any concerns regarding the breast mm:07/11/24 MRI:01/30/24 Assistant Signal Maintainer Required: No Airplane Gas Tank Liner Assembler: Airplane Gas Tank Liner Assembler Present Accompanied by: Self / Same As Patient Allergies diphenhydramine (Benadryl Allergy) Allergy (Unknown, Verified 02/25/25 09:36) heart palpitations xanthan gum Allergy (Unknown, Verified 02/25/25 09:36) anaphylaxis Chlortrimeton Allergy (Unknown, Uncoded 02/25/25 09:36) Heart race IV Dye Allergy (Unknown, Uncoded 02/25/25 09:36) Swelling seasonal Allergy (Unknown, Uncoded 02/25/25 09:36) Unknown Medication List - Last Reconciled 02/25/25 by Jose Hunt MD allopurinol 100 mg PO DAILY cholecalciferol (vitamin D3) 1,000 units PO DAILY epinephrine 0.3 mL IM ONCE PRN fexofenadine (Carissa Allergy) 180 mg PO ONCE fluticasone propionate 50 mcg/actuation 2 sprays intranasal DAILY hydrochlorothiazide 25 mg PO DAILY ipratropium bromide intranasal prednisone mg PO HPI Comments Details: Sada Gonzalez is a 74-year-old female patient of Dr. Esdras Taylor returning for a high risk breast examination. Her family history is significant for her mother diagnosed with breast cancer at the age of 70 ( she at the age of 94 ), maternal aunt with breast cancer diagnosed at age 55, maternal first cousin diagnosed with breast cancer at the age of 55, maternal great aunt diagnosed with breast cancer at an unknown age, and a paternal great aunt also diagnosed with breast cancer at the age of 65. Her sister from multiple myeloma in 2018. Mrs. Gonzalez has been followed for high risk of breast cancer due to her family history with yearly mammograms alternated every 6 months with MRIs of the breast. She underwent MRI of the breast in June 2018 which revealed a high suspicion finding in the right breast (BI-RADS 4). She subsequently underwent an MR guided biopsy on 07/27/2018 which revealed a benign papilloma. Subsequent breast MRI on 01/31/2020 revealed a low suspicion area in the right breast and a six-month follow-up right breast MRI of the was recommended. This was obtained on 08/11/2020 and revealed no suspicious findings in either breast (BI-RADS 1 bilaterally). Her most recent mammogram performed on 07/11/2024 revealed no mammographic evidence of malignancy (BI-RADS 2). MRI performed on 01/30/2024 revealed no MR specific evidence of malignancy (BI-RADS 1 bilaterally). She is now due for her annual breast MRI. She denies any new breast symptoms in either breast. [facility] Medical History Papilloma of right breast Borderline hypertension Surgical History History of spinal fusion (08/2020) History of right breast biopsy (07/27/18) History of History of tonsillectomy History of appendectomy (~06/1968) History of blepharoplasty (~08/2010) Family History Father No problems noted. Mother Breast cancer Paternal Grandmother Cervical cancer Maternal Aunt Breast cancer Thyroid cancer Maternal Aunt History of pancreatic cancer Sister Multiple myeloma Paternal Uncle Prostate cancer Paternal Aunt Breast cancer Maternal Uncle ALS (amyotrophic lateral sclerosis) Maternal Uncle Oral cancer Family/Other History of pancreatic cancer Maternal Uncle Brain cancer Social History Patient Tobacco Use Status: Never used Tobacco Review of Systems Const All systems reviewed & are unremarkable except as noted in HPI and below Physical Exam Vital Signs: Last Vital Signs Pulse 84 02/25/25 09:33 BP 137/82 02/25/25 09:33 BMI result Body Mass Index 30.0 Const General: cooperative, healthy appearing, comfortable, no acute distress, well developed, alert, awake and Physically active Chest Other: Left breast: No skin change, no nipple retraction, no nipple discharge, no palpable mass, no enlarged lymph nodes. Right breast: No skin change, no nipple retraction, no nipple discharge, no palpable mass, no enlarged lymph nodes Resp Effort & Inspection: normal respiratory effort Skin General skin exam: no rashes or lesions noted Extrem General: Yes no clubbing, cyanosis or edema Assessment & Plan Assessment & Plan (1) At high risk for breast cancer: Code(s): Z91.89 - Other specified personal risk factors, not elsewhere classified Category: Medical (2) Family history of breast cancer: Code(s): Z80.3 - Family history of malignant neoplasm of breast Category: Medical (3) Abnormal magnetic resonance imaging of right breast: Code(s): R92.8 - Other abnormal and inconclusive findings on diagnostic imaging of breast Category: Medical Plan 74-year-old female patient determined to be at high risk for breast cancer due to family history. Her most recent mammogram performed on 07/11/2024 revealed no mammographic evidence of malignancy (BI-RADS 2). MRI performed on 01/30/2024 revealed no MR specific evidence of malignancy (BI-RADS 1 bilaterally). She is now due for her annual breast MRI. She will return in 6 months for follow-up breast examination, sooner PRN. Orders: Orders MR breast BI wo/w con Today Z80.3 - Family history of malignant neoplasm of breast, Z91.89 - Other specified personal risk factors, not elsewhere classified Coding Level of Care Code Est Pt Level 3 (82238) Complex visit Add On G2211 Diagnoses At high risk for breast cancer Z91.89 Family history of breast cancer Z80.3 Abnormal magnetic resonance imaging of right breast R92.8
[2025-02-25 09:33] VITALS: BP 137/82; PULSE 84
== END 2025-02-25 09:51 | disposition home or self-care (01) ==
LOC: HO.HGS 09:24
PROVIDERS: PCP Internal Medicine; Visit Provider Surgery
DX: Z91.89 Other specified personal risk factors, not elsewhere classified (principal); Z80.3 Family history of malignant neoplasm of breast; R92.8 Other abnormal and inconclusive findings on diagnostic imaging of breast
CPT/HCPCS: 99213; G2211

== ENCOUNTER → 2025-02-25 09:23 | Outpatient (BNVA) | payer MEDICARE, OTHER, SELFPAY | PROVIDERS: PCP Internal Medicine; Visit Provider Surgery | DX: R92.8 Other abnormal and inconclusive findings on diagnostic imaging of breast (principal); Z80.3 Family history of malignant neoplasm of breast; Z91.89 Other specified personal risk factors, not elsewhere classified | CPT/HCPCS: 99212 ==